=== PATIENT | female | born 1985 | race Caucasian/White ===

== ENCOUNTER 2023-04-24 08:30 | Outpatient (CLI) | payer OTHER, SELFPAY | END 2023-04-24 08:31 | disposition home or self-care (01) | PROVIDERS: PCP Physician Assistant Medical; Visit Provider Physician Assistant Medical | DX: R19.7 Diarrhea, unspecified (principal) | CPT/HCPCS: 80053; 82977; 83516; 84443 ==

== ENCOUNTER 2023-05-21 10:09 | Outpatient (CLI) | payer OTHER, SELFPAY | END 2023-05-21 10:10 | disposition home or self-care (01) | PROVIDERS: PCP Physician Assistant Medical; Visit Provider Physician Assistant Medical | DX: R79.89 Other specified abnormal findings of blood chemistry (principal); Z13.220 Encounter for screening for lipoid disorders | CPT/HCPCS: 80061; 84450; 84460 ==

== ENCOUNTER 2023-05-29 10:54 | Outpatient (CLI) | payer OTHER, SELFPAY ==
--- NOTE | 2023-05-29 11:30 | US_ITS ---
Patient: ARIADNE VILLEGAS Facility:?[facility] Patient ID:?[id number] Site Patient ID:?[id number]. Site :?[id number] Study:?US-Pelvis TRANSVAGINAL-05/29/2023 11:23:45 AM Ordering Physician:ALLY YUEN Final Report: CLINICAL HISTORY: Displacement of IUD TECHNIQUE: 2D sarah scale and color Doppler images were acquired of the pelvis using a transvaginal approach. FINDINGS: On transvaginal imaging, the myometrium has a normal uniform echotexture. Uterus measures 9.4 x 5.0 x 5.6 cm. Normal position of the IUD within the endometrial canal. The left ovary measures 5.1 x 2.3 x 2.4 cm in size and the right ovary measures 5.4 x 2.6 x 3.8 cm. The ovaries demonstrate normal arterial and venous blood flow on color Doppler analysis. There are no suspicious fluid collections within the cul-de-sac. Complex right ovarian cyst measuring 3.7 x 2.2 x 3.0 cm containing internal echoes. No internal vascularity. IMPRESSION: IUD in normal position within the endometrial canal. Hemorrhagic right ovarian cyst measuring 3.7 cm. Dictated by Harley Sears MD @ 05/29/2023 11:50:57 AM Signed by:?Harley Sears MD @05/29/2023 11:50:57 AM (Electronic Signature)
== END 2023-05-29 10:55 | disposition home or self-care (01) ==
PROVIDERS: PCP Physician Assistant Medical; Visit Provider Registered Nurse
DX: Z30.431 Encounter for routine checking of intrauterine contraceptive device (principal); N83.201 Unspecified ovarian cyst, right side
CPT/HCPCS: 76830; 87491; 87591